=== PATIENT | female | born 1955 | race Caucasian/White ===

== ENCOUNTER 2019-04-01 17:24 | Emergency (ER) | payer OTHER ==
[2019-04-01 17:31] VITALS: TEMP 97.9
[2019-04-01] MEDS ORDERED: SODIUM CHLORIDE 0.9% 1,000 ML IV STA (18:50)
--- NOTE | 2019-04-01 18:57 | ED ---
General Adult HPI - General Chief complaint: Recheck/Abnormal Lab/Rx Stated complaint: swollen carotid Time Seen by Provider: 04/01/19 18:27 Source: patient, RN notes reviewed Mode of arrival: ambulatory Limitations: no limitations - History of Present Illness Initial comments: This is a 63-year-old female history of heart disease and an implanted defib rillator who states she had the onset over last several days of sinus drainage with some frontal headache she woke up this point was some swelling to left side of her neck. She denies any dizziness any fevers chills or sweats at this time though she again is had sinus congestion and drainage. She states the drainage is clear at this time. No cough or phlegm production. She was currently seen b y her doctor sent here for evaluation of the carotid artery and the headache. No other modifying factors at this time. - Related Data Home Medications Medication Instructions Recorded Confirmed ALPRAZolam [Xanax] 0.5 mg PO TID PRN 09/09/14 04/01/19 Albuterol Inhaler [Ventolin Hfa 2 puff INHALATION Q6H PRN 09/09/14 04/01/19 Inhaler] Atorvastatin [Lipitor] 40 mg PO QAM 09/09/14 04/01/19 Carvedilol [Coreg] 6.25 mg PO BID 09/09/14 04/01/19 Aspirin 81 mg PO QAM 10/12/14 04/01/19 Losartan [Cozaar] 12.5 mg PO DAILY 10/12/14 04/01/19 Spironolactone [Aldactone] 25 mg PO DAILY 04/22/15 04/01/19 Cholecalciferol [Vitamin D3 (25 2,000 unit PO DAILY 04/01/19 04/01/19 Mcg = 1000 Iu)] Fexofenadine HCl 180 mg PO DAILY PRN 04/01/19 04/01/19 Tobramycin [Tobrex 0.3% Ophth Soln] 1 drop BOTH EYES DIRECTED 04/01/19 04/01/19 Previous Rx's Medication Instructions Recorded Azithromycin [Zithromax Z-pack] 250 mg PO DIRECTED #6 tab 04/01/19 Allergies Allergy/AdvReac Type Severity Reaction Status Date / Time ceftriaxone sodium Allergy Rash/Hives Verified 04/01/19 20:09 [From Rocephin] Penicillins Allergy Rash/Hives Verified 04/01/19 20:09 varenicline tartrate Allergy THROAT Verified 04/01/19 20:09 [From Chantix] Swelling meperidine HCl [From Demerol] AdvReac Nausea & Verified 04/01/19 20:09 Vomiting Review of Systems ROS Statement: Those systems with pertinent positive or pertinent negative responses have been documented in the HPI. ROS Other: All systems not noted in ROS Statement are negative. Past Medical History Past Medical History: Cancer, COPD Additional Past Medical History / Comment(s): See Dr Swain's H&P, HIATAL HERNIA, breast cancer History of Any Multi-Drug Resistant Organisms: None Reported Past Surgical History: Bladder Surgery, Heart Catheterization, Heart Catheterization With Stent, Hysterectomy Additional Past Surgical History / Comment(s): 10/13/14 PTCA with stent ostial LAD. STATES STENTS X2 Other SX HX: HEART CATH ON 09/14/14. CECE CATARACT, BLADDER Sling, RT breast LUMPECTOMY-benign, GROWTH REMOVED FROM THROAT, LIPOMA NECK/L LEG Past Anesthesia/Blood Transfusion Reactions: No Reported Reaction Additional Past Anesthesia/Blood Transfusion Reaction / Comment(s): Pt has never recieved blood. Date of Last Stent Placement:: 10/13/14 Past Psychological History: Anxiety Smoking Status: Current every day smoker Past Alcohol Use History: Occasional Past Drug Use History: None Reported - Past Family History Mother Family Medical History: Cancer Additional Family Medical History / Comment(s): UTERINE/BREAST Father Family Medical History: Cancer Additional Family Medical History / Comment(s): Father of unknown type of cancer. General Exam - General Exam Comments Initial Comments: This is a well-developed well-nourished awake alert oriented 3 female Limitations: no limitations General appearance: alert, anxious Head exam: Present: atraumatic, normocephalic, normal inspection Eye exam: Present: normal appearance, PERRL, EOMI. Absent: scleral icterus, conjunctival injection, periorbital swelling ENT exam: Present: other (Boggy nasal mucosa no tenderness to percussion over the sinuses at this time. Mild hyperemia to the posterior pharynx.) Neck exam: Present: full ROM, other (Some prominence of the left jugular vein compared to the right though no increase with Valsalva type activity. No stridor or bruits and there is lymphadenopathy noted.) Respiratory exam: Present: normal lung sounds bilaterally. Absent: respiratory distress, wheezes, rales, rhonchi, stridor Cardiovascular Exam: Present: regular rate, normal rhythm, normal heart sounds. Absent: systolic murmur, diastolic murmur, rubs, gallop, clicks GI/Abdominal exam: Present: soft, normal bowel sounds. Absent: distended, tenderness, guarding, rebound, rigid Extremities exam: Present: normal inspection, full ROM, normal capillary refill. Absent: tenderness, pedal edema, joint swelling, calf tenderness Back exam: Present: normal inspection Neurological exam: Present: alert, oriented X3, CN II-XII intact Psychiatric exam: Present: normal affect, normal mood Skin exam: Present: warm, dry, intact, normal color. Absent: rash Course Vital Signs 04/01/19 04/01/19 04/01/19 17:27 20:00 21:00 Temperature 97.9 F Pulse Rate 78 65 61 Respiratory 19 16 20 Rate Blood Pressure 116/72 120/72 102/60 O2 Sat by Pulse 97 Oximetry EKG Findings - EKG Results: EKG: interpreted by RIRI (Pacemaker rhythm 66 the ventricular rate NE interval 124 QRS 1:30 QT since QTC 478/501) Medical Decision Making - Medical Decision Making Patient's reexamination. I did discuss the findings with her she feels good at this time she does demonstrate evidence of sinusitis be placed on appropriate medication she can take penicillins or ciprofloxacin she'll be placed on Zithromax she's been on before. She'll be given a dose prior to discharge and sent home with a prescription. She is a follow-up with her doctor return when necessary - Lab Data Result diagrams: 04/01/19 19:10 04/01/19 19:10 Lab Results 04/01/19 04/01/19 04/01/19 Range/Units 19:10 19: 19: WBC 5.5 (3.8-10.6) k/uL RBC 4.38 (3.80-5.40) m/uL Hgb 14.0 (11.4-16.0) gm/dL Hct 42.0 (34.0-46.0) % MCV 96.1 (80.0-100.0) fL MCH 32.1 (25.0-35.0) pg MCHC 33.4 (31.0-37.0) g/dL RDW 12.3 (11.5-15.5) % Plt Count 296 (150-450) k/uL Neutrophils % 59 % Lymphocytes % 23 % Monocytes % 5 % Eosinophils % 8 % Basophils % 2 % Neutrophils # 3.3 (1.3-7.7) k/uL Lymphocytes # 1.3 (1.0-4.8) k/uL Monocytes # 0.3 (0-1.0) k/uL Eosinophils # 0.5 (0-0.7) k/uL Basophils # 0.1 (0-0.2) k/uL Sodium 138 (137-145) mmol/L Potassium 4.8 (3.5-5.1) mmol/L Chloride 103 (98-107) mmol/L Carbon Dioxide 29 (22-30) mmol/L Anion Gap 6 mmol/L BUN 16 (7-17) mg/dL Creatinine 0.74 (0.52-1.04) mg/dL Est GFR (CKD-EPI)AfAm >90 (>60 ml/min/1.73 sqM) Est GFR (CKD-EPI)NonAf 87 (>60 ml/min/1.73 sqM) Glucose 93 (74-99) mg/dL Calcium 9.7 (8.4-10.2) mg/dL Magnesium 1.9 (1.6-2.3) mg/dL Total Bilirubin 0.6 (0.2-1.3) mg/dL AST 31 (14-36) U/L ALT 25 (4-34) U/L Alkaline Phosphatase 80 (38-126) U/L Creatine Kinase 68 (30-135) U/L Total Protein 7.1 (6.3-8.2) g/dL Albumin 4.5 (3.5-5.0) g/dL Influenza Type A RNA Not Detected (Not Detectd) Influenza Type B (PCR) Not Detected (Not Detectd) - Radiology Data Radiology results: report reviewed (I did review the imaging and report no acute findings or some findings and the carotid arteries it are not significant at this time. Please see complete report patient does have evidence of sinusitis.), image reviewed Disposition Clinical Impression: Acute rhinosinusitis, Cervical lymphadenopathy Disposition: HOME SELF-CARE Condition: Good Instructions (If sedation given, give patient instructions): Rhinosinusitis (ED), Lymphadenopathy (ED) Additional Instructions: Dictation prescription he's described it to your preferred pharmacy and [place] Prescriptions: Azithromycin [Zithromax Z-pack] 250 mg PO DIRECTED #6 tab Is patient prescribed a controlled substance at d/c from ED?: No Referrals: Kaitlin Sánchez MD [Primary Care Provider] - 1-2 days
[2019-04-01 19:28] LABS: Basophils # (A) 0.1 k/uL (0-0.2); Basophils % (A) 2 %; Eosinophils # (A) 0.5 k/uL (0-0.7); Eosinophils % (A) 8 %; Lymphocytes # (A) 1.3 k/uL (1.0-4.8); Lymphocytes % (A) 23 %; MCH 32.1 pg (25.0-35.0); MCHC 33.4 g/dL (31.0-37.0); MCV 96.1 fL (80.0-100.0); Mean Platelet Volume 7.6; Monocytes # (A) 0.3 k/uL (0-1.0); Monocytes % (A) 5 %; Neutrophils # (A) 3.3 k/uL (1.3-7.7); Neutrophils % (A) 59 %; Platelet Count 296 k/uL (150-450); RBC 4.38 m/uL (3.80-5.40); RDW 12.3 % (11.5-15.5); WBC 5.5 k/uL (3.8-10.6)
[2019-04-01 19:31] LABS: ALT 25 U/L (4-34); AST 31 U/L (14-36); African American GFR (CKD) >90 (>60 ml/min/1.73 sqM); Albumin 4.5 g/dL (3.5-5.0); Alkaline Phosphatase 80 U/L (38-126); Anion Gap 6 mmol/L; Blood Urea Nitrogen 16 mg/dL (7-17); Calcium 9.7 mg/dL (8.4-10.2); Carbon Dioxide 29 mmol/L (22-30); Chloride 103 mmol/L (98-107); Creatine Kinase 68 U/L (30-135); Glucose 93 mg/dL (74-99); Magnesium 1.9 mg/dL (1.6-2.3); Non-African American GFR(CKD) 87 (>60 ml/min/1.73 sqM); Potassium 4.8 mmol/L (3.5-5.1); Sodium 138 mmol/L (137-145); Total Bilirubin 0.6 mg/dL (0.2-1.3); Total Protein 7.1 g/dL (6.3-8.2)
--- NOTE | 2019-04-01 20:09 | CT ---
EXAMINATION TYPE: CT sinus wo con DATE OF EXAM: 04/01/2019 COMPARISON: HISTORY: Left sided facial numbness and headache. CT DLP: 456.4 mGycm Automated exposure control for dose reduction was used. Multiple axial sections were obtained from the top of the frontal sinuses to the bottom of the maxill a without contrast. There are large mucus retention cysts in both maxillary sinuses. Frontal sinuses appear normal. There is minimal mucosal thickening left side of the ethmoid sinus. Sphenoid sinus shows minimal mucosal t hickening. I see no bony destructive process. Orbital margins are intact. Maxilla is intact. Nasal soy ne is intact. IMPRESSION: There is mild sinusitis as above. Large mucus retention cysts in the maxillary sinuses. No focal bone destruction.
--- NOTE | 2019-04-01 20:18 | CT ---
EXAMINATION TYPE: CT angio head neck DATE OF EXAM: 04/01/2019 COMPARISON: None HISTORY: Left sided neck swelling, headache and facial numbness. CT DLP: 287.5 mGycm Automated exposure control for dose reduction was used. CONTRAST: Performed with IV Contrast, patient injected with 65ml mL of Isovue 370. Multiple axial sections were obtained from the aortic arch to the vertex of the brain with intravenou s contrast. There are 3-D post processed images. FINDINGS: There is normal branching pattern of the great vessels on the aortic arch. There is bilateral arteria l flow in the subclavian arteries. There is arterial flow in the common internal and external carotid arteries bilaterally. There is some plaque formation at the carotid artery bifurcations. There is dunia men narrowing of less than 20% on the right side in the internal carotid artery. There is less than 1 0% narrowing of the proximal left internal carotid artery. There is arterial flow in both vertebral arteries. There is arterial flow in the vertebrobasilar hayden ry system. There is no evidence of carotid or vertebral artery aneurysm or dissection. I see no evidence of intr acranial arterial stenosis. There is no mass effect. There is no aneurysm or neovascularity. There is normal contrast opacification of the venous sinuses. The left posterior cerebral artery appears to f ill mostly through the left posterior communicating artery. IMPRESSION: Negative CT angiogram of the brain. Minimal atherosclerotic disease in the carotid arteries without evidence of hemodynamic stenosis.
[2019-04-01 21:12] VITALS: BP 102/60; PULSE 61; RESP 20
[2019-04-01] MEDS ORDERED: AZITHROMYCIN 500 MG TAB PO STA (21:12)
== END 2019-04-01 21:26 | disposition home or self-care (01) ==
LOC: EC 17:24
DX: J01.90 Acute sinusitis, unspecified (principal); R59.0 Localized enlarged lymph nodes; J44.9 Chronic obstructive pulmonary disease, unspecified; I51.9 Heart disease, unspecified; F17.200 Nicotine dependence, unspecified, uncomplicated; Z85.3 Personal history of malignant neoplasm of breast; Z95.818 Presence of other cardiac implants and grafts; Z95.5 Presence of coronary angioplasty implant and graft; Z95.810 Presence of automatic (implantable) cardiac defibrillator; Z79.82 Long term (current) use of aspirin; Z79.899 Other long term (current) drug therapy; Z88.1 Allergy status to other antibiotic agents; Z88.0 Allergy status to penicillin; Z88.8 Allergy status to other drugs, medicaments and biological substances; Z88.5 Allergy status to narcotic agent
CPT/HCPCS: 36415; 93005; 80053; 82550; 83735; 85025; 87502; 70496; 70498; 70486; 99284; 96360; Q9967